=== PATIENT | male | born 1970 | race Hispanic/Latino ===

== ENCOUNTER 2018-09-20 21:22 | Emergency (ER) | payer BC | END 2018-09-20 22:32 | disposition home or self-care (01) | LOC: EDH 21:22 | DX: S61.217A Laceration without foreign body of left little finger without damage to nail, initial encounter (principal); Z88.0 Allergy status to penicillin; Z87.442 Personal history of urinary calculi; W45.8XXA Other foreign body or object entering through skin, initial encounter; Y93.89 Activity, other specified; Y92.098 Other place in other non-institutional residence as the place of occurrence of the external cause; Y99.8 Other external cause status | CPT/HCPCS: 29130; 73130 ==

== ENCOUNTER 2023-09-20 08:30 | Emergency (ER) | payer BC ==
[~2023-09-20] VITALS: Ht 170.2 cm; Wt 77.1 kg
[2023-09-20 08:54] LABS: ADD UA MICROSCOPIC YES; APPEARANCE,URINE CLOUDY (CLEAR); BILIRUBIN,URINE NEGATIVE (NEGATIVE); COLOR,URINE LIGHT-ORANGE (YELLOW); GLUCOSE, URINE (UA) NEGATIVE (NEGATIVE); KETONES,URINE NEGATIVE (NEGATIVE); LEUKOCYTE ESTERASE ,URINE NEGATIVE Leu/uL (NEGATIVE); NITRATE,URINE NEGATIVE (NEGATIVE); OCCULT BLOOD,URINE LARGE (NEGATIVE); PH,URINE 6.5 (5.0-8.0); PROTEIN,URINE 20 mg/dL (NEGATIVE); UROBILINOGEN,URINE 0.2 mg/dL (0.2-1.0)
[2023-09-20 08:58] LABS: BACTERIA,URINE RARE /HPF (None Seen); CALCIUM OXALATE CRYSTALS,UR RARE /LPF (None Seen); RBC,URINE TNTC /HPF (0-1)
[2023-09-20 09:25] LABS: HEMATOCRIT 45.3 % (42-54); MEAN CORPUSCULAR HEMOGLOBIN 30.7 pg (27.0-33.0); MEAN CORPUSCULAR HGB CONC 35.3 g/dL (32.0-36.0); MEAN CORPUSCULAR VOLUME 86.9 fL (79-99); PLATELET COUNT (AUTO) 216 K/uL (130-400); RED BLOOD CELL COUNT(AUTO) 5.21 MIL/uL (4.50-6.20); RED CELL DISTRIBUTION WIDTH 12.9 % (11.0-15.5); WHITE BLOOD COUNT (AUTO) 7.4 K/uL (4.8-10.8)
[2023-09-20 09:32] LABS: CREATININE 1.2 mg/dL (0.5-1.3); POTASSIUM 3.7 mmol/L (3.5-5.1)
[2023-09-20 09:37] LABS: BILIRUBIN,TOTAL 0.5 mg/dL (0.2-1.0); TOTAL PROTEIN, SERUM 7.6 g/dL (6.0-8.3)
[2023-09-20 09:57] LABS: LYMPHOCYTES % (MANUAL) 19 % (22-44); MAN.DIFF COMMENT-IMPRESSION MANUAL DIFFERENTIAL; MONOCYTES % (MANUAL) 6 % (2-9); REACTIVE LYMPHOCYTES 3 % (0-0); SEGMENTED NEUTROPHILS % 72 % (40-70); TOTAL CELLS COUNTED 100
[2023-09-20 09:58] LABS: PLATELET MORPHOLOGY COMMENT ADEQUATE
[2023-09-20] MEDS: MORPHINE 4 MG SYG IVP ONE (10:21)
[2023-09-20] MEDS: TAMSULOSIN HCL 0.4 MG CAP.ER.24H PO ONE (11:04)
[2023-09-20] MEDS: KETOROLAC 30MG VIAL (30MG/ML) IVP ONE (11:04)
[2023-09-20] MEDS: 0.9%NACL 1000ML 1,000 ML IV ONE (11:04)
[2023-09-20 12:48] VITALS: BP 123/78; PULSE 82; RESP 16; O2SAT 99
[2023-09-20] MEDS ORDERED: ONDA-243 PO (13:49)
[2023-09-20] MEDS ORDERED: ACET-2079 PO (13:49)
[2023-09-20] MEDS ORDERED: IBUP-2077 PO (13:49)
[2023-09-20] MEDS ORDERED: TAMS-1 PO (13:49)
== END 2023-09-20 14:58 | disposition home or self-care (01) ==
LOC: EDH 08:30
DX: R10.9 Unspecified abdominal pain (principal); N13.2 Hydronephrosis with renal and ureteral calculous obstruction; Z88.0 Allergy status to penicillin
CPT/HCPCS: 99284; 74176; 96374; 96361; 96375; 80053; 85025; 87088; 81001; 36415; J2270; J1885